=== PATIENT | male | born 1960 | race Caucasian/White ===

== ENCOUNTER 2020-06-28 05:40 | Day surgery (SDC) | payer OTHER, SELFPAY ==
[~2020-06-28] VITALS: Ht 168.9 cm; Wt 59.9 kg
[2020-06-28] MEDS ORDERED: LIDOCAINE 2% 100 MG/5 ML UJET TP ONE ×2 (07:46→08:25)
[2020-06-28] MEDS ORDERED: fentaNYL citrate 0.05 MG/ML VIAL ONE (07:46)
[2020-06-28] MEDS ORDERED: fentaNYL citrate 0.05 MG/ML VIAL IVP ONE (08:25)
== END 2020-06-28 08:40 | disposition home or self-care (01) ==
LOC: MOR 05:40 → MMU 05:58 → MOR 08:40
PROVIDERS: ATTEND Internal Medicine Gastroenterology
DX: Z12.11 Encounter for screening for malignant neoplasm of colon (principal); E11.9 Type 2 diabetes mellitus without complications; Z79.899 Other long term (current) drug therapy
CPT/HCPCS: 45378; 87426; J3010